=== PATIENT | female | born 2000 | race Hispanic/Latino ===

== ENCOUNTER 2021-09-08 18:20 | Emergency (ER) | payer OTHER ==
[~2021-09-08] VITALS: Ht 162.6 cm; Wt 72.6 kg
[2021-09-08] MEDS ORDERED: TETANUS/DIPHTHERIA TOX ADULT 0.5 ML SYR IM ONE (19:45)
[2021-09-08] MEDS ORDERED: TETANUS/DIPHTHERIA TOX ADULT 0.5 ML SYR ONE (19:52)
== END 2021-09-08 19:50 | disposition home or self-care (01) ==
LOC: ER 18:39
DX: S00.83XA Contusion of other part of head, initial encounter (principal); W22.09XA Striking against other stationary object, initial encounter; Y92.89 Other specified places as the place of occurrence of the external cause
CPT/HCPCS: 70450; 90471; 90714; 99283

== ENCOUNTER 2021-09-11 09:34 | Emergency (ER) | payer SELFPAY ==
[~2021-09-11] VITALS: Ht 162.6 cm; Wt 72.6 kg
[2021-09-11] MEDS ORDERED: IBUPROFEN600 MG PO (09:46)
== END 2021-09-11 09:55 | disposition home or self-care (01) ==
LOC: ER 09:44
DX: S06.0X0A Concussion without loss of consciousness, initial encounter (principal); R06.02 Shortness of breath; R51.9 Headache, unspecified; W22.8XXA Striking against or struck by other objects, initial encounter; Y99.0 Civilian activity done for income or pay
CPT/HCPCS: 99282